=== PATIENT | female | born 2000 | race Caucasian/White ===

== ENCOUNTER 2021-10-11 16:40 | Emergency (ER) | payer BC ==
[2021-10-11 16:56] VITALS: BP 140/85; BMI 30.4
[2021-10-11] MEDS ORDERED: FAMOTIDINE 20 MG TABLET PO ONE (18:20)
[2021-10-11] MEDS ORDERED: ONDANSETRON 4 MG TABLET PO ONE (18:20)
[2021-10-11] MEDS ORDERED: ACETAMINOPHEN 500 MG TABLET (FP) PO ONE (18:20)
[2021-10-11] MEDS ORDERED: FAMOTIDINE 20 MG TABLET ONE (19:10)
[2021-10-11] MEDS ORDERED: ONDANSETRON *ODT* 4 MG TABLET ONE (19:10)
[2021-10-11] MEDS ORDERED: ACETAMINOPHEN 325 MG TABLET (FP) ONE (19:11)
[2021-10-11 19:15] LABS: BASO % 0.2 % (0-2.0); HEMOGLOBIN 13.7 GM/dL (10.7-15.3); LYMPH % 5.3 % (8-40); MCH 29.2 pg (25.7-33.7); MCHC 34.2 g/dl (32.0-36.0); MEAN CELL VOLUME 85.1 fl (80-96); MEAN PLT VOLUME 8.5 fl (7.5-11.1); MONO % 5.6 % (3.8-10.2); NEUT % 88.9 % (42.8-82.8); PLATELET COUNT 216 10^3/uL (134-434); RBC 4.69 M/mm3 (3.60-5.2); RDW 13.2 % (11.6-15.6); WHITE BLOOD COUNT 13.2 K/mm3 (4.0-10.0)
[2021-10-11 19:31] LABS: CALCIUM 8.7 mg/dL (8.5-10.1)
[2021-10-11 19:32] LABS: BLOOD UREA NITROGEN 8.1 mg/dL (7-18)
[2021-10-11 19:34] LABS: CREATININE 0.8 mg/dL (0.55-1.3)
[2021-10-11 19:36] LABS: BILIRUBIN,TOTAL 0.5 mg/dL (0.2-1); TOT PROT 7.9 g/dl (6.4-8.2)
[2021-10-11] MEDS ORDERED: POTASSIUM CHLORIDE TABS 20 MEQ TABLET.ER (FP) PO ONE ×2 (20:33→20:42)
[2021-10-11 20:49] VITALS: PULSE 85; TEMP 98.6
== END 2021-10-11 22:08 | disposition home or self-care (01) ==
LOC: JER 16:40
DX: R19.5 Other fecal abnormalities (principal)
CPT/HCPCS: 36415; 74177-TC; 80053; 83690; 84703; 85025; 99285-25; Q9967